=== PATIENT | male | born 1960 | race Hispanic/Latino ===

== ENCOUNTER 2021-08-23 15:34 | Emergency (ER) | payer SELFPAY ==
[2021-08-23] MEDS ORDERED: IBUPROFEN 800 MG TAB PO ONE (20:56)
[2021-08-23] MEDS ORDERED: SODIUM CHLORIDE 0.9% 1000 ML 1,000 ML IV ONE (20:56)
--- NOTE | 2021-08-23 21:11 | Emergency Department Report ---
ED General Adult HPI - General Chief complaint: Upper Respiratory Infection Stated complaint: FLU/COVID SYMPTOMS Time Seen by Provider: 08/23/21 20:56 Source: patient Mode of arrival: Ambulatory Limitations: No Limitations - History of Present Illness Initial comments: Patient 61-year-old male who presents for generalized body aches with cough chills productive cough yellow-green for 1 week. Patient not COVID vaccinated patient denies other history. There is no chest pain. There is no nausea no vomiting no fever no chills. Symptoms exacerbated by activities and relieved by nothing tried - Related Data Previous Rx's Medication Instructions Recorded Last Taken Type Acetaminophen 650 mg PO Q6H PRN #30 cap 08/24/21 Unknown Rx Albuterol Mdi (or & Nicu Only) 2 puff IH QID PRN #8.5 gram 08/24/21 Unknown Rx [ProAir HFA Inhaler] guaiFENesin [Guaifenesin] 400 mg PO TID PRN #30 08/24/21 Unknown Rx predniSONE [Deltasone] 40 mg PO DAILY 5 Days #5 08/24/21 Unknown Rx Allergies Allergy/AdvReac Type Severity Reaction Status Date / Time No Known Allergies Allergy Verified 08/23/21 21:37 ED Review of Systems ROS: Stated complaint: FLU/COVID SYMPTOMS Other details as noted in HPI Constitutional: chills, fever, malaise Eyes: denies: eye pain, eye discharge, vision change ENT: ear pain, throat pain, congestion. denies: epistaxis Respiratory: cough. denies: shortness of breath, wheezing Cardiovascular: denies: chest pain Endocrine: no symptoms reported Gastrointestinal: denies: abdominal pain, nausea, vomiting, diarrhea Genitourinary: denies: urgency, dysuria Musculoskeletal: denies: back pain Skin: denies: rash, lesions Neurological: denies: headache, weakness, paresthesias, vertigo Psychiatric: denies: anxiety, depression Hematological/Lymphatic: denies: easy bleeding, easy bruising ED Past Medical Hx - Medications Home Medications: Home Medications Medication Instructions Recorded Confirmed Last Taken Type Acetaminophen 650 mg PO Q6H PRN #30 cap 08/24/21 Unknown Rx Albuterol Mdi (or & Nicu Only) 2 puff IH QID PRN #8.5 gram 08/24/21 Unknown Rx [ProAir HFA Inhaler] guaiFENesin [Guaifenesin] 400 mg PO TID PRN #30 08/24/21 Unknown Rx predniSONE [Deltasone] 40 mg PO DAILY 5 Days #5 08/24/21 Unknown Rx ED Physical Exam - General Limitations: No Limitations General appearance: alert, in no apparent distress - Head Head exam: Present: normocephalic, normal inspection - Eye Eye exam: Present: normal appearance, PERRL, EOMI. Absent: conjunctival injection, nystagmus Pupils: Present: normal accommodation - ENT ENT exam: Present: normal orophraynx, mucous membranes moist, TM's normal bilaterally, normal external ear exam, other (nares boggy clear rhinorrhea , ) - Neck Neck exam: Present: normal inspection, full ROM. Absent: tenderness, lymphadenopathy - Respiratory Respiratory exam: Present: normal lung sounds bilaterally. Absent: respiratory distress, wheezes, rales, rhonchi, stridor, chest wall tenderness - Cardiovascular Cardiovascular Exam: Present: regular rate, normal rhythm, normal heart sounds. Absent: systolic murmur, diastolic murmur, rubs, gallop - GI/Abdominal GI/Abdominal exam: Present: soft, normal bowel sounds. Absent: distended, tenderness, guarding, rebound, rigid, bruit, hernia - Rectal Rectal exam: Present: deferred - Extremities Exam Extremities exam: Present: normal inspection, full ROM, normal capillary refill. Absent: tenderness - Back Exam Back exam: Present: normal inspection, full ROM. Absent: CVA tenderness (R), C VA tenderness (L) - Neurological Exam Neurological exam: Present: alert, oriented X3, CN II-XII intact, normal gait - Psychiatric Psychiatric exam: Present: normal affect, normal mood - Skin Skin exam: Present: warm, dry, intact, normal color. Absent: rash ED Course Vital Signs 08/23/21 08/23/21 08/24/21 16:18 21:45 00:54 Temperature 98.1 F Pulse Rate 118 H 88 Respiratory 20 14 16 Rate Blood Pressure 170/105 Blood Pressure 166/97 [Right] O2 Sat by Pulse 96 96 Oximetry ED Medical Decision Making - Lab Data Result diagrams: 08/23/21 21:17 08/23/21 21:17 Labs 08/23/21 08/23/21 21:17 21:17 WBC 5.1 RBC 5.78 H Hgb 16.6 H Hct 49.5 H MCV 86 MCH 29 MCHC 34 RDW 12.7 L Plt Count 218 Lymph % (Auto) 8.4 L [place] % (Auto) 8.8 H Eos % (Auto) 0.0 Baso % (Auto) 0.2 Lymph # (Auto) 0.4 L [place] # (Auto) 0.5 Eos # (Auto) 0.0 Baso # (Auto) 0.0 Seg Neutrophils % 82.6 H Seg Neutrophils # 4.2 Sodium 137 Potassium 3.1 L Chloride 95.6 L Carbon Dioxide 27 Anion Gap 18 BUN 14 Creatinine 0.7 L Estimated GFR > 60 BUN/Creatinine Ratio 20 Glucose 125 H Calcium 9.0 Total Bilirubin 0.50 AST 33 ALT 42 Alkaline Phosphatase 97 Total Protein 7.3 Albumin 4.0 Albumin/Globulin Ratio 1.2 - EKG Data EKG shows normal: sinus rhythm, axis, intervals, QRS complexes, ST-T waves Rate: normal - EKG Data When compared to previous EKG there are: previous EKG unavailable Interpretation: normal EKG (NSR no STEMI inter by ed attending ) - Radiology Data Radiology results: report reviewed, image reviewed CHEST 2 VIEWS INDICATION / CLINICAL INFORMATION: cough, fever. COMPARISON: None available. FINDINGS: SUPPORT DEVICES: None. HEART / MEDIASTINUM: No significant abnormality. LUNGS / PLEURA: No significant pulmonary abnormality. No significant pleural effusion. No pneumothorax. ADDITIONAL FINDINGS: No significant additional findings. IMPRESSION: 1. No acute abnormality of the chest. Signer Name: Matt Chacon MD Signed: 08/23/2021 9:37 PM Workstation Name: [id number] - Medical Decision Making Vital signs are improved. Chest x-ray normal no infiltrates no opacities, labs are normal, there is no chest pain no dizziness no lightheaded no shortness of breath no nausea or vomiting. There is been no fever or chills this is likely viral URI. Plan treat for same, follow-up primary care doctor in 2 to 3 days. Patient advises symptoms are improved with medications given in ED. He is alert oriented x3 patient is amatory with steady gait patient with no acute distress at this time. Patient DC'd home in stable condition. Critical care attestation.: If time is entered above; I have spent that time in minutes in the direct care of this critically ill patient, excluding procedure time. ED Disposition Clinical Impression: Viral illness Disposition: HOME / SELF CARE / HOMELESS Is pt being admited?: No Does the pt Need Aspirin: No Condition: Stable Instructions: Viral Illness, Adult Additional Instructions: Take medications as prescribed, follow-up with your doctor in 2 to 3 days. Return to emergency department should symptoms worsen. Prescriptions: Acetaminophen 650 mg PO Q6H PRN #30 cap PRN Reason: pain fever predniSONE [Deltasone] 40 mg PO DAILY 5 Days #5 guaiFENesin [Guaifenesin] 400 mg PO TID PRN #30 PRN Reason: Cough Albuterol Mdi (or & Nicu Only) [ProAir HFA Inhaler] 2 puff IH QID PRN #8.5 gram PRN Reason: Shortness Of Breath Referrals: GUSTAVO LOTT MD [Staff Physician] - 3-5 Days Forms: Work/School Release Form(ED) Time of Disposition: 01:29
--- NOTE | 2021-08-23 21:29 | XRay Report ---
CHEST 2 VIEWS INDICATION / CLINICAL INFORMATION: cough, fever. COMPARISON: None available. FINDINGS: SUPPORT DEVICES: None. HEART / MEDIASTINUM: No significant abnormality. LUNGS / PLEURA: No significant pulmonary abnormality. No significant pleural effusion. No pneumothora x. ADDITIONAL FINDINGS: No significant additional findings. IMPRESSION: 1. No acute abnormality of the chest. Signer Name: Matt Chacon MD Signed: 08/23/2021 9:25 PM Workstation Name: [id number]
[2021-08-23 21:37] LABS: Hematocrit 49.5 % (35.5-45.6); Hemoglobin 16.6 gm/dl (11.8-15.2); Mean Corpuscular HGB Conc 34 % (32-34); Mean Corpuscular Volume 86 fl (84-94); Platelet Count 218 K/mm3 (140-440); Red Blood Count 5.78 M/mm3 (3.65-5.03); Red Cell Distribution Width 12.7 % (13.2-15.2)
[2021-08-23 21:45] LABS: Basophils % (Auto) 0.2 % (0.0-1.8); Lymphocytes # (Auto) 0.4 K/mm3 (1.2-5.4); Lymphocytes % (Auto) 8.4 % (13.4-35.0); Monocytes # (Auto) 0.5 K/mm3 (0.0-0.8); Monocytes % (Auto) 8.8 % (0.0-7.3)
[2021-08-23 21:54] LABS: Alanine Aminotransferase 42 units/L (7-56); Blood Urea Nitrogen 14 mg/dL (9-20); Hemolysis Index 6
[2021-08-23 21:55] LABS: BUN/Creatinine Ratio 20
[2021-08-24] MEDS ORDERED: ACETAMINOPHEN W/CODEINE 300-30 MG TAB PO ONE (01:19)
[2021-08-24 01:43] VITALS: BP 206/108
== END 2021-08-24 01:46 | disposition home or self-care (01) ==
LOC: ED 15:34
DX: B34.9 Viral infection, unspecified (principal)
CPT/HCPCS: 36415; 71046; 80053; 85025; 93005; 93010; 96360; 99284; J7030; Q0162